=== PATIENT | male | born 1965 | race Two or more races ===

== ENCOUNTER → 2019-09-09 | Emergency (ER) | payer OTHER ==
[~2019-09-09] VITALS: Ht 170.2 cm; Wt 90.7 kg
[~2019-09-09] MED LIST: DIOVAN HCT 3201 EAC1 ORAL; Fluorescein Strips BOTH EYES ONE; Morgan Lens TOPIC ONE; OFLOXACIN10 ML OP
--- NOTE | 2019-09-09 16:17 | Emergency Room Report ---
History of Present Illness General Chief Complaint: Eye Problems Source: Patient Present Illness HPI 54-year-old male with no symptom past medical history here complaining of pain and irritation of right eye that occurred at work earlier today. Patient reports that he was wearing 2 pairs of glasses however the wind blew and mirta with inside his eye while he was working. Has a foreign body sensation in right eye with minimal pain rating a 5 out of 10. Conjunctive is injected. No discharge noted. Patient denies any blurry vision, photophobia, headache and dizziness. Has not taken medication for symptom relief. Is able to open and close eyes without any discomfort. Denies any trauma to the eye. Denies any chemical exposure to the eye. Allergies: Coded Allergies: No Known Allergies (Unverified , 09/09/19) COVID-19 Screening Contact w/high risk pt: No Recent Travel to affected area: No Experienced COVID-19 symptoms?: No COVID-19 Testing performed APPOINTMENT COORDINATOR: No Patient History Past Medical History: see triage record Past Surgical History: none Pertinent Family History: none Immunizations: UTD Reviewed Nursing Documentation: PMH: Agreed; PSxH: Agreed Nursing Documentation-PMH Past Medical History: No History, Except For Hx Hypertension: Yes Review of Systems All Other Systems: negative except mentioned in HPI Physical Exam Vital Signs Date Time Temp Pulse Resp B/P (MAP) Pulse Ox O2 Delivery O2 Flow Rate FiO2 09/09/19 14:56 98.1 74 16 124/82 (96) 94 Room Air Sp02 EP Interpretation: reviewed, normal General Appearance: no apparent distress, alert, GCS 15, non-toxic Head: normocephalic, atraumatic Eyes: right eye other - Corneal abrasion right conjunctival injection; bilateral eye PERRL ENT: hearing grossly normal, normal pharynx, no angioedema, normal voice Neck: full range of motion, supple/symm/no masses Respiratory: chest non-tender, lungs clear, normal breath sounds, speaking full sentences Cardiovascular #1: regular rate, rhythm, no edema, no murmur Gastrointestinal: normal bowel sounds, non tender, soft, non-distended, no guarding, no rebound Rectal: deferred Genitourinary: no CVA tenderness Musculoskeletal: back normal Neurologic: alert, motor strength/tone normal, oriented x3, sensory intact, responsive, speech normal Psychiatric: judgement/insight normal, memory normal, mood/affect normal, no suicidal/homicidal ideation Skin: no rash Lymphatic: no adenopathy Medical Decision Making PA Attestation All my diagnosis and treatment plans were reviewed ad discussed with my supervising physician Dr. Urban Diagnostic Impression: Primary Impression: Corneal abrasion ER Course 54-year-old male with no symptom past medical history here complaining of pain and irritation of right eye that occurred at work earlier today. Patient reports that he was wearing 2 pairs of glasses however the wind blew and mirta with inside his eye while he was working. Has a foreign body sensation in right eye with minimal pain rating a 5 out of 10. Conjunctive is injected. No discharge noted. Patient denies any blurry vision, photophobia, headache and dizziness. Has not taken medication for symptom relief. Is able to open and close eyes without any discomfort. Denies any trauma to the eye. Denies any chemical exposure to the eye. Ddx considered but are not limited to: bacterial conjunctivitis, allergic conjunctivitis, viral conjunctivitis, periorbital cellulitis, global trauma Vital signs: are WNL, pt. is afebrile H&PE are most consistent with: corneal abrasion ORDERS: Ofloxacin ophthalmic ED INTERVENTIONS: wood lamp used DISCHARGE: At this time pt. is stable for d/c to home. Will provide printed patient care instructions, and any necessary prescriptions. Care plan and follow up instructions have been discussed with the patient prior to discharge. Take medication as directed, follow primary doctor, you also need to be seen by technical product manager, if worsening symptoms return to emergency room Last Vital Signs Date Time Temp Pulse Resp B/P (MAP) Pulse Ox O2 Delivery O2 Flow Rate FiO2 09/09/19 14:56 98.1 74 16 124/82 (96) 94 Room Air Disposition: HOME, SELF-CARE Condition: Stable Scripts Ofloxacin (Ofloxacin) 5 Ml Drops 2 DROP OP Q6HR for 7 Days, #5 ML Prov: Angelito Louis 09/09/19 Patient Instructions: Corneal Abrasion, [id number] Additional Instructions: Take medication as directed, follow primary doctor, if worsening symptoms return to the emergency room. You also need to be sent to an technical product manager Angelito Louis Sep 09, 2019 16:17
[2019-09-09 16:28] VITALS: BP 124/82
== END | disposition home or self-care (01) ==
LOC: EMR 15:26
DX: S05.01XA Injury of conjunctiva and corneal abrasion without foreign body, right eye, initial encounter (principal); X58.XXXA Exposure to other specified factors, initial encounter; Y92.9 Unspecified place or not applicable; I10 Essential (primary) hypertension
CPT/HCPCS: 99283